=== PATIENT | male | born 1990 | race African-American/Black ===

== ENCOUNTER 2021-10-28 20:20 | Inpatient (IN) | payer SELFPAY ==
[2021-10-29] MEDS ORDERED: methylPREDNISolone Sod Succ/PF 125 MG/2 ML VIAL ONE (00:09)
[2021-10-29] MEDS ORDERED: methylPREDNISolone Sod Succ 0.75 GM in Sodium Chloride 0.9% 250 ML 250 ML IVPB SCH (00:30)
[2021-10-29 02:48] VITALS: BMI 35.9
[2021-10-29] MEDS ORDERED: Acetaminophen 325 MG TAB PO PRN (03:00)
[2021-10-29] MEDS ORDERED: Ondansetron PF 4 MG/2 ML Vial IVP PRN (03:00)
[2021-10-29] MEDS ORDERED: Ondansetron ODT 4 MG TAB SL PRN (03:00)
[2021-10-29] MEDS ORDERED: hydrALAZINE 20 MG/ML VIAL SLOW IVP PRN (05:21)
[2021-10-29 07:32] LABS: #Monocytes 0.1 thou/uL (0.11-0.59); #Neutrophils 8.6 thou/uL (1.40-6.50); %Basophils 0.2 % (0.0-1.0); %Eosinophils 0.1 % (0.0-10.0); %Lymphocytes 10.6 % (21.0-51.0); %Monocytes 0.8 % (0.0-10.0); %Neutrophils 88.4 % (42.0-75.0); Hemoglobin 14.8 g/dL (14.0-18.0); Mean Corpuscular HGB CONC 32.9 g/dL (32.0-36.0); Mean Corpuscular Hemoglobin 27.1 pg (27.0-31.0); Mean Corpuscular Volume 82.2 fL (78.0-98.0); Mean Platelet Volume 8.7 fL (7.4-10.4); Platelet Count 256 thou/uL (130-400); RBC Distribution Width 12.1 % (11.5-14.5); Red Blood Cell (RBC) Count 5.46 mill/uL (4.70-6.10); White Blood Cell (WBC) Count 9.7 thou/uL (4.8-10.8)
[2021-10-29 07:41] LABS: Hemoglobin A1c 5.8 % (4.0-6.0)
[2021-10-29 07:52] LABS: Anion Gap 14 mmol/L (10-20); BUN (Urea Nitrogen) 10 mg/dL (8.9-20.6); Calc. Creatinine Clearance 138 mL/min (70-130); Carbon Dioxide 26 mmol/L (22-29); Cardiac Risk 4.3 (Less than 4.5); Chloride 102 mmol/L (98-107); Cholesterol 146 mg/dl (< 200 Desired); Glucose 149 mg/dL (70-105); HDL Cholesterol 34 mg/dL (>60 Neg Risk); LDL Cholesterol, Calculated 103 mg/dL; Sodium 138 mmol/L (136-145); Triglycerides 47 mg/dL (Less than 150)
[2021-10-29] MEDS ORDERED: methylPREDNISolone Sod Succ 40 MG VIAL IVP SCH (09:00)
[2021-10-29] MEDS: Aspirin 81 mg Enteric Coated Tablet PO SCH (09:42)
[2021-10-29 15:07] LABS: Amphetamine Not Detected (NotDetected); Barbiturates Screen Not Detected (NotDetected); Benzodiazepine Screen Not Detected (NotDetected); Cocaine Metabolite Screen Not Detected (NotDetected); Methadone Not Detected (NotDetected); Methamphetamine Not Detected (NotDetected); Opiate Screen Not Detected (NotDetected); Oxycodone Screen Not Detected (NotDetected); Phencyclidine (PCP) Not Detected (NotDetected); THC/Cannabinoid Screen Not Detected (NotDetected); Tricyclic Screen Not Detected (NotDetected)
[2021-10-29] MEDS ORDERED: Dextrose 5% in Water 1,000 ML IV PRN (15:08)
[2021-10-29] MEDS ORDERED: Dextrose 50% Abboject 50 ML SYRINGE SLOW IVP PRN (15:08)
[2021-10-29] MEDS ORDERED: Insulin Regular 300 UNITS/3 ML VIAL SC PRN (15:08)
[2021-10-29] MEDS ORDERED: Gabapentin 100 MG CAP PO SCH (15:15)
[2021-10-29] MEDS: Gabapentin 100 MG CAP PO SCH (21:07)
[2021-10-29] MEDS: Atorvastatin Calcium 40 MG TAB PO SCH (21:07)
[2021-10-30 05:38] LABS: Anion Gap 11 mmol/L (10-20); BUN (Urea Nitrogen) 12 mg/dL (8.9-20.6); Calc. Creatinine Clearance 151 mL/min (70-130); Calcium 9.5 mg/dL (7.8-10.44); Carbon Dioxide 25 mmol/L (22-29); Cardiac Risk 3.7 (Less than 4.5); Chloride 104 mmol/L (98-107); Cholesterol 136 mg/dl (< 200 Desired); Glucose 178 mg/dL (70-105); HDL Cholesterol 37 mg/dL (>60 Neg Risk); LDL Cholesterol, Calculated 88 mg/dL; Potassium 3.9 mmol/L (3.5-5.1); Sodium 136 mmol/L (136-145); Triglycerides 56 mg/dL (Less than 150)
[2021-10-30 05:42] LABS: Band 2 % (5-11); Hemoglobin 13.8 g/dL (14.0-18.0); Lymphocytes 13 % (21-51); MDiff Complete? YES; Mean Corpuscular HGB CONC 31.8 g/dL (32.0-36.0); Mean Corpuscular Hemoglobin 26.1 pg (27.0-31.0); Mean Corpuscular Volume 82.1 fL (78.0-98.0); Mean Platelet Volume 8.5 fL (7.4-10.4); Metamyelocyte 1 % (0-0); Monocytes 4 % (0-10); Neutrophil 80 % (42-75); Platelet Count 274 thou/uL (130-400); Platelet Morphology Comment Appears Adequate; RBC Distribution Width 12.3 % (11.5-14.5); RBC Morphology Normal; Red Blood Cell (RBC) Count 5.28 mill/uL (4.70-6.10); White Blood Cell (WBC) Count 20.6 thou/uL (4.8-10.8)
[2021-10-30] MEDS ORDERED: Nitroglycerin 0.4 MG TAB (25 Tab Bottle) ONE (07:39)
[2021-10-30] MEDS ORDERED: Acetaminophen 325 MG TAB PO PRN (07:49)
[2021-10-30] MEDS: Aspirin 81 mg Enteric Coated Tablet PO SCH (08:41)
[2021-10-30] MEDS: Gabapentin 100 MG CAP PO SCH ×3 (08:42→20:43)
[2021-10-30] MEDS ORDERED: methylPREDNISolone Sod Succ 2 GM in Sodium Chloride 0.9% 100 ML IVPB SCH (09:00)
[2021-10-30] MEDS ORDERED: methylPREDNISolone Sod Succ 1 GM in Sodium Chloride 0.9% 100 ML IVPB SCH (09:00)
[2021-10-30] MEDS ORDERED: methylPREDNISolone Sod Succ 40 MG VIAL IVP SCH (09:00)
[2021-10-30] MEDS: Atorvastatin Calcium 40 MG TAB PO SCH (20:43)
[2021-10-31] MEDS: Aspirin 81 mg Enteric Coated Tablet PO SCH (08:15)
[2021-10-31] MEDS: Gabapentin 100 MG CAP PO SCH (08:15)
[2021-10-31 08:51] VITALS: TEMP 97.5
[2021-10-31 10:22] VITALS: BP 159/84
== END 2021-10-31 10:27 | disposition home or self-care (01) | DRG 59 ==
LOC: ERS 20:20 → 2SW 23:00 → OBSVTOIN 10-29 15:12
PROVIDERS: ADMIT Physician Assistant; ATTEND Physician Assistant
DX: G35 Multiple sclerosis (principal); R45.851 Suicidal ideations; Z20.822 Contact with and (suspected) exposure to COVID-19; G81.91 Hemiplegia, unspecified affecting right dominant side; K21.9 Gastro-esophageal reflux disease without esophagitis; F32.A Depression, unspecified
CPT/HCPCS: 36415; 36416; 70551; 72156; 80048; 80061; 80306; 83036; 84443; 84484; 85025; 96374; 99284; G0378; J2930; J3490; J7050; U0003; U0005